=== PATIENT | male | born 1930 | race Caucasian/White ===

== ENCOUNTER 2018-07-17 06:14 | Day surgery (SDC) | payer MEDICARE ==
[2018-07-13 16:44] LABS: BASOPHILS # (AUTO) 0.1 X10'3 (0-0.2); BASOPHILS % (AUTO) 0.9 % (0-1); EOSINOPHILS # (AUTO) 0.1 X10'3 (0-0.9); HEMOGLOBIN 14.3 g/dl (14.0-17.9); LYMPHOCYTES # (AUTO) 1.4 X10'3 (1.1-4.8); LYMPHOCYTES % (AUTO) 24.3 % (21-51); MEAN CORPUSCULAR HEMOGLOBIN 30.7 PG (27.0-31.0); MEAN CORPUSCULAR VOLUME 90.4 FL (78-98); MEAN PLATELET VOLUME 7.3 FL (7.4-10.4); MONOCYTES # (AUTO) 0.6 X10'3 (0-0.9); MONOCYTES % (AUTO) 11.1 % (2-12); NEUTROPHILS # (AUTO) 3.5 X10'3 (1.8-7.7); NEUTROPHILS % (AUTO) 61.7 % (42-75); PLATELET COUNT 216 X10'3 (140-440); RED BLOOD COUNT 4.65 X10'6 (4.70-6.10); RED CELL DISTRIBUTION WIDTH 13.1 % (11.5-14.5); WHITE BLOOD COUNT 5.7 X10'3 (4.5-11.0)
[2018-07-13 16:51] LABS: PARTIAL THROMBOPLASTIN TIME 27 SECONDS (22-32)
[2018-07-13 16:57] LABS: ALBUMIN 3.7 G/DL (3.4-5.0); ANION GAP 6 (8-16); BLOOD UREA NITROGEN 18 MG/DL (7-18); BUN/CREATININE RATIO 16.1 (5.4-32.0); CALCIUM 8.6 MG/DL (8.5-10.1); CHLORIDE 106 MMOL/L (99-107); CREATININE 1.12 MG/DL (0.60-1.10); GLUCOSE 100 MG/DL (70-104); POTASSIUM 4.2 MMOL/L (3.5-5.1); SODIUM 139 MMOL/L (135-145); TOTAL CARBON DIOXIDE 27.1 MMOL/L (24-32); eGFR 62 ML/MIN
[~2018-07-17] VITALS: Ht 180.3 cm; Wt 113.2 kg
[2018-07-17] VITALS (13 sets, daily range): BP systolic 105–140; BP diastolic 56–98
[2018-07-17] MEDS ORDERED: LORazepam 0.5 MG tablet PO PRN (06:40)
[2018-07-17] MEDS ORDERED: cefazolin/dext.iso 2gm/100ml 100 ML IV ONE (06:40)
[2018-07-17] MEDS ORDERED: normal saline 1,000 ML IV SCH (06:40)
[2018-07-17] MEDS ORDERED: diphenhydrAMINE 25mg capsule PO PRN (06:40)
[2018-07-17] MEDS ORDERED: METO-539 PO (07:05)
[2018-07-17] MEDS ORDERED: SIMV10TA2 PO (07:05)
[2018-07-17] MEDS ORDERED: COLE5PAC3 PO (07:05)
[2018-07-17] MEDS ORDERED: AMLO10TA PO (07:05)
[2018-07-17] MEDS ORDERED: FURO-150 PO (07:05)
[2018-07-17] MEDS ORDERED: OMEP20CA10 PO (07:05)
[2018-07-17] MEDS ORDERED: APIX5TAB3 PO (07:05)
[2018-07-17] MEDS ORDERED: DOXA4TAB3 PO (07:05)
[2018-07-17] MEDS ORDERED: FLUO20CA22 PO (07:05)
[2018-07-17] MEDS ORDERED: LIDOcaine/PRILOcaine 5gm cream TP ONE (07:15)
[2018-07-17] MEDS ORDERED: midazolam 2 mg/2 ml injection ONE (07:38)
[2018-07-17] MEDS ORDERED: verapamil 2.5 mg/ml inj IV ONE (07:38)
[2018-07-17] MEDS ORDERED: fentaNYL/PF 50MCG/1 ML 2ML syringe ONE (07:39)
[2018-07-17] MEDS ORDERED: iohexol 350MG/ML 100ml bottle IV ONE (07:39)
[2018-07-17] MEDS ORDERED: iohexol 350 MG/ML 50ML vial IV ONE ×2 (07:39→09:32)
[2018-07-17] MEDS ORDERED: nitroGLYCERIN-Tridil 50MG/D5W 250 ML IV ONE (07:39)
[2018-07-17] MEDS ORDERED: heparin 1,000unit/ml 10ml vial 10 ML ONE (07:39)
[2018-07-17] MEDS ORDERED: LIDOcaine 1% (10mg/ml)w/preservative injection 20ml MDV ONE (07:39)
[2018-07-17 09:46] LABS: ISTAT HGB ART 13.3 g/dl (14.0-18.0); ISTAT Hct ART 39 %PCV (42-52); ISTAT O2 SATURATION ARTERIAL 95 % (95-98); ISTAT SOURCE ART
[2018-07-17 09:46] LABS: ISTAT Hct MIX 40 %PCV (42-52); ISTAT O2 SATURATION MIX VENOUS 60 % (60-80); ISTAT SOURCE MIX
[2018-07-17] MEDS ORDERED: furosemide 20 MG/2 ML vial IV ONE (13:45)
[2018-07-17] MEDS ORDERED: potassium Cl 20 mEq SR tablet PO ONE (13:50)
== END 2018-07-17 16:50 | disposition home or self-care (01) ==
LOC: SSTAY O 06:14
PROVIDERS: ATTEND Internal Medicine Cardiovascular Disease
DX: I25.10 Atherosclerotic heart disease of native coronary artery without angina pectoris (principal); E78.5 Hyperlipidemia, unspecified; I50.9 Heart failure, unspecified; I48.91 Unspecified atrial fibrillation; I49.5 Sick sinus syndrome; I48.0 Paroxysmal atrial fibrillation; I11.0 Hypertensive heart disease with heart failure; Z79.899 Other long term (current) drug therapy; Z98.890 Other specified postprocedural states; Z80.9 Family history of malignant neoplasm, unspecified; Z88.6 Allergy status to analgesic agent
CPT/HCPCS: 36415; 80048; 82803; 83880; 85014; 85025; 85610; 85730; 93005; 93460; 93567; 99152; 99153; C1760; C1769; J1644; J1940; J2001; J2250; J3010; J7030; Q0163; Q9967; A4620; J3490

== ENCOUNTER 2018-07-22 12:03 | Emergency (ER) | payer MEDICARE ==
[~2018-07-22] VITALS: Ht 180.3 cm; Wt 109.1 kg
[2018-07-22] VITALS (7 sets, daily range): BP systolic 119–169; BP diastolic 59–90
[~2018-07-22 12:03] MED LIST: AMLO10TA PO; APIX5TAB3 PO; COLE5PAC3 PO; DOXA4TAB3 PO; FLUO20CA22 PO; FURO-150 PO; METO-539 PO; OMEP20CA11 PO; SIMV10TA2 PO
--- NOTE | 2018-07-22 12:43 | NUR ---
VASCULAR AT BEDSIDE
[2018-07-22 13:10] LABS: BASOPHILS % (AUTO) 0.7 % (0-1); EOSINOPHILS # (AUTO) 0.1 X10'3 (0-0.9); EOSINOPHILS % (AUTO) 2.1 % (0-6); HEMATOCRIT 35.2 % (42.0-52.0); HEMOGLOBIN 12.2 g/dl (14.0-17.9); LYMPHOCYTES % (AUTO) 20.4 % (21-51); MEAN CORPUSCULAR HEMOGLOBIN 31.2 PG (27.0-31.0); MEAN CORPUSCULAR HGB CONC 34.6 g/dL (33.0-36.5); MEAN CORPUSCULAR VOLUME 90.2 FL (78-98); MEAN PLATELET VOLUME 7.4 FL (7.4-10.4); MONOCYTES # (AUTO) 0.5 X10'3 (0-0.9); MONOCYTES % (AUTO) 10.6 % (2-12); NEUTROPHILS # (AUTO) 3.4 X10'3 (1.8-7.7); NEUTROPHILS % (AUTO) 66.2 % (42-75); PLATELET COUNT 201 X10'3 (140-440); RED BLOOD COUNT 3.91 X10'6 (4.70-6.10); RED CELL DISTRIBUTION WIDTH 13.2 % (11.5-14.5); WHITE BLOOD COUNT 5.2 X10'3 (4.5-11.0)
--- NOTE | 2018-07-22 13:13 | NUR ---
PT'S FRIEND RAGHAV CARDOZA WILL PICK HIM UP AFTER PROCEDURE
[2018-07-22 13:20] LABS: PARTIAL THROMBOPLASTIN TIME 29 SECONDS (22-32)
[2018-07-22 13:21] LABS: ALANINE AMINOTRANSFERASE 22 U/L (12-78); ALBUMIN 3.3 G/DL (3.4-5.0); ALBUMIN/GLOBULIN RATIO 1.1 (1.1-1.5); ALKALINE PHOSPHATASE 53 IU/L (46-116); ANION GAP 3 (8-16); ASPARTATE AMINO TRANSFERASE 20 U/L (10-37); BILIRUBIN,TOTAL 0.8 MG/DL (0.1-1.0); BLOOD UREA NITROGEN 20 MG/DL (7-18); BUN/CREATININE RATIO 21.5 (5.4-32.0); CALCIUM 8.8 MG/DL (8.5-10.1); CHLORIDE 106 MMOL/L (99-107); CREATININE 0.93 MG/DL (0.60-1.10); GLUCOSE 113 MG/DL (70-104); POTASSIUM 4.3 MMOL/L (3.5-5.1); SODIUM 140 MMOL/L (135-145); TOTAL CARBON DIOXIDE 30.6 MMOL/L (24-32); TOTAL PROTEIN 6.3 G/DL (6.4-8.2); eGFR 77 ML/MIN
[2018-07-22] MEDS ORDERED: Thrombin (Bovine) 5,000 unit vial TP ONE (14:00)
[2018-07-22] MEDS ORDERED: LIDOcaine 1%/PF 5ML 10 MG/ML VIAL SQ ONE (14:05)
--- NOTE | 2018-07-22 14:20 | NUR ---
PT TO IR VIA TIA TRINH FROM IR TOOK PT.
[2018-07-22] MEDS ORDERED: TRAM50TA2 PO (15:35)
--- NOTE | 2018-07-22 15:56 | NUR ---
PT BACK FORM IR.
[2018-07-22] MEDS ORDERED: HYDROcodone/acetaminophen 5mg/325mg tablet PO ONE (16:05)
--- NOTE | 2018-07-22 17:59 | NUR ---
GROIN DRESSING CLEAN AND DRY, NO NUMBNESS OR TINGLING WITH GOOD CAP REFILL ON RIGHT FOOT. PT CO PAIN 3.
[2018-07-27] MEDS ORDERED: HYDR-3972 PO (11:23)
== END 2018-07-22 18:28 | disposition home or self-care (01) ==
LOC: ER 12:04
DX: T82.897A Other specified complication of cardiac prosthetic devices, implants and grafts, initial encounter (principal); I72.8 Aneurysm of other specified arteries; I25.10 Atherosclerotic heart disease of native coronary artery without angina pectoris; I10 Essential (primary) hypertension; Z98.890 Other specified postprocedural states; Z88.5 Allergy status to narcotic agent; Z79.899 Other long term (current) drug therapy; Y92.89 Other specified places as the place of occurrence of the external cause
CPT/HCPCS: 36002; 36415; 76937; 76942; 80053; 85025; 85610; 85730; 93926; 99284; 99285

== ENCOUNTER 2018-08-05 12:29 | Emergency (ER) | payer MEDICARE ==
[~2018-08-05] VITALS: Ht 180.3 cm; Wt 107.3 kg
[~2018-08-05 12:29] MED LIST changes: +HYDR-3972 PO; -METO-539 PO
[2018-08-05 13:15] LABS: BASOPHILS % (AUTO) 0.7 % (0-1); EOSINOPHILS # (AUTO) 0.1 X10'3 (0-0.9); EOSINOPHILS % (AUTO) 1.6 % (0-6); HEMATOCRIT 39.3 % (42.0-52.0); HEMOGLOBIN 13.8 g/dl (14.0-17.9); LYMPHOCYTES # (AUTO) 0.8 X10'3 (1.1-4.8); LYMPHOCYTES % (AUTO) 16.6 % (21-51); MEAN CORPUSCULAR HGB CONC 35.1 g/dL (33.0-36.5); MEAN CORPUSCULAR VOLUME 91.3 FL (78-98); MEAN PLATELET VOLUME 6.9 FL (7.4-10.4); MONOCYTES # (AUTO) 0.5 X10'3 (0-0.9); MONOCYTES % (AUTO) 10.6 % (2-12); NEUTROPHILS # (AUTO) 3.6 X10'3 (1.8-7.7); NEUTROPHILS % (AUTO) 70.5 % (42-75); PLATELET COUNT 270 X10'3 (140-440); RED BLOOD COUNT 4.31 X10'6 (4.70-6.10); RED CELL DISTRIBUTION WIDTH 13.5 % (11.5-14.5); WHITE BLOOD COUNT 5.1 X10'3 (4.5-11.0)
[2018-08-05 13:26] LABS: PARTIAL THROMBOPLASTIN TIME 28 SECONDS (22-32)
[2018-08-05 13:32] LABS: ALANINE AMINOTRANSFERASE 26 U/L (12-78); ALBUMIN 3.6 G/DL (3.4-5.0); ALKALINE PHOSPHATASE 62 IU/L (46-116); ANION GAP 4 (8-16); ASPARTATE AMINO TRANSFERASE 23 U/L (10-37); BILIRUBIN,TOTAL 0.9 MG/DL (0.1-1.0); BLOOD UREA NITROGEN 16 MG/DL (7-18); BUN/CREATININE RATIO 16.3 (5.4-32.0); CALCIUM 9.1 MG/DL (8.5-10.1); CHLORIDE 105 MMOL/L (99-107); CREATININE 0.98 MG/DL (0.60-1.10); GLUCOSE 115 MG/DL (70-104); POTASSIUM 4.1 MMOL/L (3.5-5.1); SODIUM 138 MMOL/L (135-145); TOTAL CARBON DIOXIDE 29.1 MMOL/L (24-32); TOTAL PROTEIN 7.1 G/DL (6.4-8.2); eGFR 72 ML/MIN
[2018-08-05 13:55] LABS: CLARITY,URINE CLEAR (Clear); COLOR,URINE YELLOW (Yellow); GLUCOSE, URINE NEGATIVE (Neg); KETONES,URINE NEGATIVE (Neg); LEUKOCYTE ESTERASE ,URINE NEGATIVE (Neg); NITRITES, URINE NEGATIVE (Neg); OCCULT BLOOD,URINE NEGATIVE (Neg); PROTEIN,URINE NEGATIVE (Neg); UROBILINOGEN,URINE 0.2 E.U/dL (0.2-1.0)
--- NOTE | 2018-08-05 13:56 | NUR ---
Vascular at bedside
[2018-08-05 13:59] LABS: UA COLLECTION TYPE VOIDED
[2018-08-05 15:37] VITALS: BP 141/86
== END 2018-08-05 15:40 | disposition home or self-care (01) ==
LOC: ER 12:30
DX: S80.11XA Contusion of right lower leg, initial encounter (principal); R53.1 Weakness; I48.91 Unspecified atrial fibrillation; I25.10 Atherosclerotic heart disease of native coronary artery without angina pectoris; I11.0 Hypertensive heart disease with heart failure; I50.9 Heart failure, unspecified; Z98.890 Other specified postprocedural states; Z88.5 Allergy status to narcotic agent; Z79.899 Other long term (current) drug therapy; X58.XXXA Exposure to other specified factors, initial encounter; Y93.89 Activity, other specified; Y92.89 Other specified places as the place of occurrence of the external cause; Y99.8 Other external cause status
CPT/HCPCS: 36415; 71045; 80053; 81003; 84484; 85025; 85610; 85730; 93005; 93926; 93971; 99284

== ENCOUNTER 2018-09-01 11:44 | Emergency (ER) | payer MEDICARE ==
[~2018-09-01] VITALS: Ht 180.3 cm; Wt 107.0 kg
[~2018-09-01 11:44] MED LIST changes: +MULT-955 PO
[2018-09-01 12:36] LABS: PARTIAL THROMBOPLASTIN TIME 29 SECONDS (22-32)
[2018-09-01 12:43] LABS: ALANINE AMINOTRANSFERASE 32 U/L (12-78); ALBUMIN 3.8 G/DL (3.4-5.0); ALBUMIN/GLOBULIN RATIO 1.2 (1.1-1.5); ALKALINE PHOSPHATASE 66 IU/L (46-116); ANION GAP 7 (8-16); ASPARTATE AMINO TRANSFERASE 26 U/L (10-37); BILIRUBIN,TOTAL 0.9 MG/DL (0.1-1.0); BLOOD UREA NITROGEN 19 MG/DL (7-18); BUN/CREATININE RATIO 16.1 (5.4-32.0); CALCIUM 8.6 MG/DL (8.5-10.1); CHLORIDE 104 MMOL/L (99-107); CREATININE 1.18 MG/DL (0.60-1.10); GLUCOSE 103 MG/DL (70-104); POTASSIUM 3.9 MMOL/L (3.5-5.1); SODIUM 139 MMOL/L (135-145); TOTAL CARBON DIOXIDE 27.6 MMOL/L (24-32); eGFR 58 ML/MIN
[2018-09-01 12:44] LABS: MAGNESIUM 1.9 MG/DL (1.5-2.4)
[2018-09-01 12:57] LABS: BASOPHILS % (AUTO) 0.9 % (0-1); EOSINOPHILS # (AUTO) 0.1 X10'3 (0-0.9); EOSINOPHILS % (AUTO) 1.7 % (0-6); HEMOGLOBIN 14.6 g/dl (14.0-17.9); LYMPHOCYTES % (AUTO) 20.1 % (21-51); MEAN CORPUSCULAR HEMOGLOBIN 31.3 PG (27.0-31.0); MEAN CORPUSCULAR VOLUME 92.3 FL (78-98); MEAN PLATELET VOLUME 7.3 FL (7.4-10.4); MONOCYTES # (AUTO) 0.5 X10'3 (0-0.9); MONOCYTES % (AUTO) 9.2 % (2-12); NEUTROPHILS # (AUTO) 3.4 X10'3 (1.8-7.7); NEUTROPHILS % (AUTO) 68.1 % (42-75); PLATELET COUNT 224 X10'3 (140-440); RED BLOOD COUNT 4.66 X10'6 (4.70-6.10); RED CELL DISTRIBUTION WIDTH 12.8 % (11.5-14.5)
[2018-09-01 14:38] VITALS: BP 136/84
== END 2018-09-01 15:01 | disposition home or self-care (01) ==
LOC: ER 11:45
DX: R53.1 Weakness (principal); R42 Dizziness and giddiness; I48.91 Unspecified atrial fibrillation; I25.10 Atherosclerotic heart disease of native coronary artery without angina pectoris; I11.0 Hypertensive heart disease with heart failure; I50.9 Heart failure, unspecified; Z95.0 Presence of cardiac pacemaker; Z98.890 Other specified postprocedural states; Z88.5 Allergy status to narcotic agent; Z79.899 Other long term (current) drug therapy
CPT/HCPCS: 36415; 71046; 80053; 83735; 83880; 84484; 85025; 85610; 85730; 93005; 99284

== ENCOUNTER 2019-01-31 06:40 | Day surgery (SDC) | payer MEDICARE ==
[2019-01-30 14:58] LABS: BASOPHILS % (AUTO) 0.9 % (0-1); EOSINOPHILS # (AUTO) 0.1 X10'3 (0-0.9); EOSINOPHILS % (AUTO) 1.8 % (0-6); HEMATOCRIT 41.2 % (42.0-52.0); HEMOGLOBIN 14.1 g/dl (14.0-17.9); MEAN CORPUSCULAR HEMOGLOBIN 32.1 PG (27.0-31.0); MEAN CORPUSCULAR HGB CONC 34.2 g/dL (33.0-36.5); MEAN CORPUSCULAR VOLUME 93.9 FL (78-98); MEAN PLATELET VOLUME 6.8 FL (7.4-10.4); MONOCYTES # (AUTO) 0.4 X10'3 (0-0.9); MONOCYTES % (AUTO) 8.2 % (2-12); NEUTROPHILS # (AUTO) 2.9 X10'3 (1.8-7.7); NEUTROPHILS % (AUTO) 67.1 % (42-75); PLATELET COUNT 196 X10'3 (140-440); RED BLOOD COUNT 4.39 X10'6 (4.70-6.10); RED CELL DISTRIBUTION WIDTH 13.4 % (11.5-14.5); WHITE BLOOD COUNT 4.3 X10'3 (4.5-11.0)
[2019-01-30 15:13] LABS: ALBUMIN 3.8 G/DL (3.4-5.0); ANION GAP 5 (8-16); BLOOD UREA NITROGEN 16 MG/DL (7-18); BUN/CREATININE RATIO 11.5 (5.4-32.0); CALCIUM 8.2 MG/DL (8.5-10.1); CHLORIDE 105 MMOL/L (99-107); CREATININE 1.39 MG/DL (0.60-1.10); GLUCOSE 112 MG/DL (70-104); POTASSIUM 4.1 MMOL/L (3.5-5.1); SODIUM 140 MMOL/L (135-145); TOTAL CARBON DIOXIDE 30.1 MMOL/L (24-32); eGFR 48 ML/MIN
[2019-01-31] VITALS (17 sets, daily range): BP systolic 103–141; BP diastolic 62–88
[~2019-01-31] VITALS: Ht 180.3 cm; Wt 112.0 kg
[~2019-01-31 06:40] MED LIST changes: +FLUO-167 PO; -FLUO20CA22 PO; +OMEP-297 PO; -OMEP20CA11 PO
[2019-01-31] MEDS ORDERED: MIDAZolam 5mg/ml 2ml vial IV ONE (07:20)
[2019-01-31] MEDS ORDERED: atropine 0.1mg/ml 10ml syringe IV ONE (07:20)
[2019-01-31] MEDS ORDERED: diphenhydrAMINE 25mg capsule PO ONE ×2 (07:20)
[2019-01-31] MEDS ORDERED: amiodarone in dextrose, iso-osm 150mg/100ml bag IV ONE (07:20)
[2019-01-31] MEDS ORDERED: LORazepam 0.5 MG tablet PO ONE (07:20)
[2019-01-31] MEDS ORDERED: normal saline 1000ml 1,000 ML IV SCH (07:20)
[2019-01-31] MEDS ORDERED: CHOL100046 PO (08:11)
[2019-01-31] MEDS ORDERED: METO25TA6 PO (08:11)
[2019-01-31] MEDS ORDERED: AMIO200T61 PO (08:11)
[2019-01-31] MEDS ORDERED: APIX5TAB3 PO (08:11)
--- NOTE | 2019-01-31 09:08 | NUR ---
Pt reports LBM was this morning, and was normal for him. Addendum: 01/31/19 at 0915 by Suzi BARCLAY Amended: Links added.
[2019-01-31] MEDS ORDERED: fentaNYL/PF 50MCG/1 ML 2ML syringe IV ONE (09:50)
== END 2019-01-31 12:00 | disposition home or self-care (01) ==
LOC: SSTAY O 06:40
PROVIDERS: ATTEND Internal Medicine Cardiovascular Disease
DX: I48.0 Paroxysmal atrial fibrillation (principal); I25.10 Atherosclerotic heart disease of native coronary artery without angina pectoris; I49.5 Sick sinus syndrome; E78.5 Hyperlipidemia, unspecified; I11.0 Hypertensive heart disease with heart failure; I50.9 Heart failure, unspecified; I27.20 Pulmonary hypertension, unspecified; Z98.890 Other specified postprocedural states; Z79.899 Other long term (current) drug therapy; Z88.5 Allergy status to narcotic agent; Z95.0 Presence of cardiac pacemaker
CPT/HCPCS: 36415; 80048; 85025; 85610; 92960; 93005; J0282; J0461; J2250; J3010; J7030; Q0163

== ENCOUNTER 2019-06-22 11:07 | Emergency (ER) | payer MEDICARE ==
[~2019-06-22] VITALS: Ht 180.3 cm; Wt 108.9 kg
[~2019-06-22 11:07] MED LIST changes: +AMIO200T61 PO; +CHOL100046 PO; -HYDR-3972 PO; +METO25TA6 PO; -MULT-955 PO; -OMEP-297 PO; +OMEP20CA15 PO
[2019-06-22] MEDS ORDERED: LIDOcaine 1% W/epiNEPHrine 1:200,000 10ml vial IJ ONE (11:50)
--- NOTE | 2019-06-22 12:08 | NUR ---
Spoke to Dr Herrera who stated pt does not need to be a trauma level 2.
--- NOTE | 2019-06-22 12:46 | NUR ---
PCT JUAN CLEANING RIGHT FOREARM WOUND IN PREPARATION OF SUTURES. PTW.
[2019-06-22 14:06] VITALS: BP 121/44
== END 2019-06-22 14:08 | disposition home or self-care (01) ==
LOC: ER 11:07
DX: S41.111A Laceration without foreign body of right upper arm, initial encounter (principal); I48.91 Unspecified atrial fibrillation; I25.10 Atherosclerotic heart disease of native coronary artery without angina pectoris; I11.0 Hypertensive heart disease with heart failure; I50.9 Heart failure, unspecified; Z95.0 Presence of cardiac pacemaker; Z98.890 Other specified postprocedural states; Z88.5 Allergy status to narcotic agent; Z79.899 Other long term (current) drug therapy; W18.30XA Fall on same level, unspecified, initial encounter; Y93.89 Activity, other specified; Y92.89 Other specified places as the place of occurrence of the external cause; Y99.9 Unspecified external cause status
CPT/HCPCS: 12002; 99284

== ENCOUNTER 2020-01-08 13:14 | Outpatient (CLI) | payer MEDICARE ==
[~2020-01-08] VITALS: Ht 180.3 cm; Wt 108.9 kg
[2020-01-08] MEDS ORDERED: albuterol 2.5 MG/3 ML nebule NEB ONE (13:45)
== END 2020-01-08 23:59 | disposition home or self-care (01) ==
LOC: RT 13:14
PROVIDERS: ATTEND Internal Medicine Cardiovascular Disease
DX: J98.8 Other specified respiratory disorders (principal); R06.02 Shortness of breath; Z79.891 Long term (current) use of opiate analgesic
CPT/HCPCS: 71046; 94060; 94727; 94729; 94760